=== PATIENT | male | born 1975 | race Caucasian/White ===

== ENCOUNTER 2024-02-05 17:02 | Emergency (ER) | payer BC, OTHER ==
[2024-02-05 17:07] VITALS: BP 135/91; PULSE 93
[2024-02-05] MEDS: Bacitracin Oint 1 GM U/D Packet TOP ONE (17:45)
[2024-02-05] MEDS: Lidocaine 1% 5 ML VIAL INJECT ONE (17:45)
== END 2024-02-05 18:30 | disposition home or self-care (01) ==
LOC: LL.ED 17:02
DX: S61.212A Laceration without foreign body of right middle finger without damage to nail, initial encounter (principal); F17.210 Nicotine dependence, cigarettes, uncomplicated; Z79.899 Other long term (current) drug therapy; W26.0XXA Contact with knife, initial encounter
CPT/HCPCS: 12001; 99282; 99283; J3490